=== PATIENT | male | born 1945 | race Caucasian/White ===

== ENCOUNTER 2017-01-18 15:04 | Inpatient (IN) | payer OTHER ==
[~2017-01-18] VITALS: Ht 188 cm; Wt 93.0 kg
[~2017-01-18 15:04] MED LIST: ATEN50TA2 PO
[2017-01-18 15:43] VITALS: BP 179/84
--- NOTE | 2017-01-18 15:47 | NUR ---
STILL IN OVERFLOW
[2017-01-18 18:17] LABS: BASOPHILS # (AUTO) 0.3 K/uL (0.00-0.22); EOSINOPHILS # (AUTO) 0.7 K/uL (0-0.4); EOSINOPHILS % (AUTO) 7.2 % (0.0-4.0); HEMATOCRIT 41.1 % (36-52); HEMOGLOBIN 13.7 g/dL (12.0-18.0); LYMPHOCYTES # (AUTO) 2.3 K/uL (2.0-11.5); LYMPHOCYTES % (AUTO) 24.2 % (20.5-51.1); MEAN CORPUSCULAR HEMOGLOBIN 30 pg (27-31); MEAN CORPUSCULAR HGB CONC 33 g/dL (33-37); MEAN CORPUSCULAR VOLUME 91 fL (80-94); MONOCYTES # (AUTO) 0.6 K/uL (0.8-1.0); MONOCYTES % (AUTO) 6.1 % (1.7-9.3); NEUTROPHILS # (AUTO) 5.7 K/uL (1.8-7.7); PLATELET COUNT (AUTO) 262 K/uL (140-450); RED BLOOD CELL COUNT(AUTO) 4.52 MIL/uL (4.20-6.10); WHITE BLOOD COUNT (AUTO) 9.6 K/uL (4.8-10.8)
[2017-01-18 18:27] LABS: ANION GAP 10.6 (8-16); CALCIUM 8.6 mg/dL (8.5-10.1); CHLORIDE 107 mmol/L (98-107); CREATININE 1.4 mg/dL (0.7-1.3); GLUCOSE 123 mg/dL (74-106); POTASSIUM 3.6 mmol/L (3.5-5.1); SODIUM SERUM 144 mmol/L (136-145); UREA NITROGEN, BLOOD 14 mg/dL (7-18)
--- NOTE | 2017-01-18 18:31 | NUR ---
Pt taken to bed 6.
[2017-01-18 18:32] LABS: ALANINE AMINOTRANSFERASE 14 U/L (16-63); ALBUMIN 3.1 g/dL (3.4-5.0); ALKALINE PHOSPHATASE 96 U/L (46-116); AMYLASE 44 U/L (25-115); ASPARTATE AMINOTRANSFERASE 14 U/L (15-37); LIPASE 68 U/L (73-393); TOTAL BILIRUBIN 0.2 mg/dL (0.0-1.0); TOTAL PROTEIN, SERUM 7.2 g/dL (6.4-8.2)
--- NOTE | 2017-01-18 18:39 | NUR ---
PT CAME TO ER DUE TO ABDOMINLA AND BACK PAIN;S/P ANGIOPLASTY X1 MONTH AGO PAIN GOT WORST.HX: HTN. NOT TAKING ANY MEDS;DENIES N/V/D; SKIN IS PINK/WARM/DRY; AAOX4 WITH EVEN AND STEADY GAIT; LUNGS CLEAR BL; HR EVEN AND REGULAR; PT DENIES ANY FEVER, CP, SOB, OR COUGH AT THIS TIME; PATIENT STATES PAIN OF 7/10 AT THIS TIME;PATIENT POSITIONED FOR COMFORT; HOB ELEVATED; BEDRAILS UP X2; BED DOWN.
--- NOTE | 2017-01-18 18:50 | NUR ---
PT IS AMBIVALENT OF CT SCAN W/ CONTRAST;EXPLAINED TO PT THE THE BENEFITS AND RISK OF PROCEDURES BUT PT IS UNSURE BECAUSE PER PT HIS PROBLEM NOW WITH HIS HEAKTH STARTED WHEN HE HAD AN ANGIOPLASTY LAST MONTH;NOTIFIED ER .
--- NOTE | 2017-01-18 19:07 | NUR ---
ASKED PT IF HE CAN URINE SAMPLE;PT STATES " I DOUBT IT" I"JUST WENT TO THE RESTROOM BEFORE COMING HERE";WILL FOLLOW UP W/ THE COLLECTION OF URINE.
--- NOTE | 2017-01-18 19:28 | NUR ---
Pt report given to JOSE RIVAS. Transfer of care at this time.
[2017-01-18] MEDS ORDERED: diphenhydrAMINE 50 MG/ML VIAL IVP ONE (20:15)
[2017-01-18] MEDS ORDERED: NACL 0.9% 1,000 ML IV ONE (20:15)
--- NOTE | 2017-01-18 20:20 | NUR ---
PT STATES PLEASE ALLOW HIM SOME TIME, HE WILL URINE SOON, ER MD DR WELCH AWARE
--- NOTE | 2017-01-18 22:07 | NUR ---
PT LEFT FOR CT ACCOMPANIED BY MEDICAL RECORDS ANALYST
[2017-01-18 22:11] LABS: APPEARANCE,URINE CLEAR (CLEAR); BILIRUBIN,URINE 1+ (NEGATIVE); BLOOD, URINE NEGATIVE (NEGATIVE); LEUKOCYTE ESTERASE ,URINE NEGATIVE (NEGATIVE); NITRITE, URINE NEGATIVE (NEGATIVE); PH,URINE 5.5 (5.0-9.0); PROTEIN,URINE TRACE (NEGATIVE); UGLUCOSE NEGATIVE (NEGATIVE)
[2017-01-18 22:17] LABS: COLOR,URINE AMBER (YELLOW)
[2017-01-18 22:27] LABS: BACTERIA,URINE None Seen /HPF (None Seen); ICTOTEST NEGATIVE (NEGATIVE); RBC,URINE NONE SEEN /HPF (0-5); SQUAMOUS EPITHELIAL CELL,UR None Seen /LPF (0-3 (FEW)); WBC,URINE NONE SEEN /HPF (0-5)
--- NOTE | 2017-01-18 22:54 | NUR ---
PT RETURN FROM CT
--- NOTE | 2017-01-19 00:05 | NUR ---
Patient appears to be resting comfortably in bed. Vital Signs within normal limits. Respirations even and unlabored.
[2017-01-19] MEDS ORDERED: NACL 0.9% 1,000 ML IV ONE (01:25)
[2017-01-19] MEDS ORDERED: PIPERACILLIN/TAZOBACTAM 3.375 GM in DEXTROSE 5% 50 ML IV ONE (01:25)
[2017-01-19] MEDS ORDERED: MORPHINE SULFATE 2 MG/ML SYR IVP PRN (01:40)
[2017-01-19] MEDS ORDERED: HYDROcodone/APAP 5/325 MG 1 TAB TAB PO PRN (01:40)
[2017-01-19] MEDS ORDERED: HYDROmorphone PFS 2 MG/ML SYR IVP PRN (01:40)
[2017-01-19] MEDS ORDERED: LORazepam 2 MG/ML VIAL IVP PRN (01:40)
[2017-01-19] MEDS ORDERED: ONDANSETRON 4 MG/2 ML VIAL IVP PRN (01:40)
[2017-01-19] MEDS ORDERED: ACETAMINOPHEN 325 MG TAB PO PRN (01:40)
[2017-01-19] MEDS ORDERED: hydrALAZINE 20 MG/ML VIAL IVP ONE (02:00)
[2017-01-19 02:05] LABS: LACTIC ACID 1.5 mmol/L (0.4-2.0)
--- NOTE | 2017-01-19 02:10 | NUR ---
Patient will be admitted to care of DR BOYD. Admited to MS 121B. Will go to room 121B. Belongings list completed. Report to [facility] .
--- NOTE | 2017-01-19 02:15 | NUR ---
PT ARRIVED TO UNIT IN WHEEL CHAIR. INITIAL ASSESSMENT COMPLETED. PT AAOX4. PT'S SKIN IS INTACT. PT HAS IV ON RIGHT AC G 18; ASYMPTOMATIC, PATENT AND INTACT. ORIENTED PT TO ROOM AND SURROUNDINGS AND USE OF CALL LIGHT. EXPLAINED PLAN OF CARE TO PT AND HE VERBALIZES UNDERSTANDING. WILL CONTINUE TO MONITOR PT.
[2017-01-19 02:20] VITALS: BP 163/94
[2017-01-19] MEDS ORDERED: PIPERACILLIN/TAZOBACTAM 3.375 GM in DEXTROSE 5% 50 ML IV SCH (03:00)
[2017-01-19] MEDS: NACL 0.9% 1,000 ML IV SCH ×2 (03:10→11:39)
[2017-01-19] MEDS ORDERED: PIPERACILLIN/TAZOBACTAM 3.375 GM VIAL IV ONE (03:10)
--- NOTE | 2017-01-19 03:21 | NUR ---
0300 ZOSYN GIVEN. THERE WAS AN ORDER TO GIVEN ZOSYN AT 0300 ON [facility]; HOWEVER, ON THE [facility]YXIS THE ORDER WAS FOR 0600. CALLED PHARMACIST ROSENDA AND HE STATED TO GO AHEAD AND GIVE IT AT 0300. WILL CONTINUE TO MONITOR PT. Addendum: 01/19/17 at 0327 by Jayla Carey RN VS STABLE, PT DENIES PAIN AT THIS TIME.
--- NOTE | 2017-01-19 04:30 | NUR ---
PT STATED THAT HE WAS HUNGRY. PROVIDED PT WITH A SANDWICH AND APPLE JUICE. PT STABLE, WILL CONTINUE TO MONITOR PT.
--- NOTE | 2017-01-19 06:28 | NUR ---
PT SLEEPING AT THIS TIME. NO SIGNS OF DISTRESS NOTED. WILL CONTINUE TO MONITOR PT.
--- NOTE | 2017-01-19 07:06 | NUR ---
PATIENT HAS BEEN SCREENED AND CATEGORIZED MODERATE NUTRITION RISK. PATIENT WILL BE SEEN WITHIN 3-5 DAYS OF ADMISSION. 01/21/17-01/23/17 ISREAL MARTINEZ MS, RDN
--- NOTE | 2017-01-19 07:15 | NUR ---
ENDORSED PLAN OF CARE TO DAY SHIFT NURSE. PT IN STABLE CONDITION.
--- NOTE | 2017-01-19 07:16 | NUR ---
PT AWAKE AND ALERT, NO SIGNS OF ACUTE DISTRESS. BOWEL SOUNDS ACTIVE IN ALL 4 QUADRANTS. BOWEL AND BLADDER CONTINENCE. SKIN INTACT. PT DENIES PAIN AT THIS TIME. AMBULATORY WITH BRP. BED IN LOW POSITION WITH BILATERAL HALF SIDE RAILS UP, CALL LIGHT WITHIN REACH. RE-ORIENTED PATIENT TO HOSPITAL AND TO UNIT, PT VERBALIZED UNDERSTANDING.
[2017-01-19 08:00] VITALS: BP 143/71
[2017-01-19] MEDS: ENOXAPARIN 40 MG/0.4 ML SYR SUBQ SCH (08:47)
--- NOTE | 2017-01-19 10:27 | NUR ---
Social Service Note: I received a phone call from supervisor case loading Dennise from [facility], she requested patient's history of present illness report to be fax to her, fax number , I faxed report.
[2017-01-19] MEDS: PIPER/TAZO 3.375GM/D5W PREMIX 50 ML IV SCH ×3 (12:21→23:54)
[2017-01-19] MEDS ORDERED: ATENOLOL 50 MG TAB PO SCH (13:30)
--- NOTE | 2017-01-19 13:37 | NUR ---
PT SEEN BY DR BOYD, NEW ORDERS RECEIVED, NOTED, WILL CARRY OUT.
[2017-01-19 15:02] LABS: BASOPHILS # (AUTO) 0.1 K/uL (0.00-0.22); BASOPHILS % (AUTO) 1.2 % (0.0-2.0); EOSINOPHILS # (AUTO) 0.6 K/uL (0-0.4); EOSINOPHILS % (AUTO) 7.3 % (0.0-4.0); HEMATOCRIT 37.8 % (36-52); HEMOGLOBIN 12.4 g/dL (12.0-18.0); LYMPHOCYTES % (AUTO) 23.6 % (20.5-51.1); MEAN CORPUSCULAR HEMOGLOBIN 30 pg (27-31); MEAN CORPUSCULAR HGB CONC 33 g/dL (33-37); MEAN CORPUSCULAR VOLUME 92 fL (80-94); MONOCYTES # (AUTO) 0.7 K/uL (0.8-1.0); NEUTROPHILS # (AUTO) 5.2 K/uL (1.8-7.7); NEUTROPHILS % (AUTO) 59.9 % (42.2-75.2); PLATELET COUNT (AUTO) 220 K/uL (140-450); RED BLOOD CELL COUNT(AUTO) 4.09 MIL/uL (4.20-6.10); RED CELL DISTRIBUTION WIDTH 14.6 % (11.6-13.7); WHITE BLOOD COUNT (AUTO) 8.6 K/uL (4.8-10.8)
[2017-01-19 16:00] VITALS: BP 169/89
[2017-01-19 16:18] LABS: AMPHETAMINE, URINE NEG. ng/ml (NEG <=1000); BARBITURATE, URINE NEG. ng/ml (NEG <=200); BENZODIAZEPINE, URINE NEG. ng/mL (NEG <=200); CANNABINOID, URINE NEG. ng/mL (NEG <=50); COCAINE, URINE NEG. ng/mL (NEG <=300); OPIATE, URINE NEG. ng/mL (NEG <=2000); PHENCYCLIDINE SCREEN,URINE NEG. ng/mL (NEG <=25)
--- NOTE | 2017-01-19 19:36 | NUR ---
PT AWAKE AND ALERT, NO SIGNS OF ACUTE DISTRESS. WILL ENDORSE TO RAMP SERVICE EMPLOYEE NURSE FOR CONTINUITY OF CARE.
--- NOTE | 2017-01-19 19:37 | NUR ---
RECEIVED FROM AM RN IN BED AWAKE AND ALERT. ABLE TO VERBALIZE SIMPLE NEEDS . DX. OF DIVERTICULITIS. . IVF SITE TO RAC INTACT AND NO INFILTRATION NOTED. RE-ORIENTED TO CALL LIGHT USE AND CARE PLANS FOR THE NIGHT DISCUSSED WITH HIM. NO COMPLAINT AT THIS TIME. NOTED PT. HAS TENDENCY TO TALK TO HIMSELF. NOT TOTALLY FOCUSED.
--- NOTE | 2017-01-19 22:37 | NUR ---
SLEEPING AT THIS TIME. NO RESTLESSNESS NOTED. MADE SURE CALL LIGHT WITH IN REACH. BED ALARM ON.
[2017-01-20 00:29] VITALS: BP 148/72
--- NOTE | 2017-01-20 02:00 | NUR ---
NEW STOOL SPECIMEN FOR CULTURE SENT TO LAB. FOR TEST. NO COMPLAINTS DONE.
--- NOTE | 2017-01-20 03:54 | NUR ---
SLEEPING. NO RESTLESSNESS. CALL LIGHT WITH IN REACH. NO INFILTRATION TO IVF SITE.
[2017-01-20] MEDS: PIPER/TAZO 3.375GM/D5W PREMIX 50 ML IV SCH (05:16)
--- NOTE | 2017-01-20 07:03 | NUR ---
SLEPT WELL THIS SHIFT. NO SOB. DENIES ANY PAIN ON THIS SHIFT. A/O X 4. CLEAR SPEECH. ABLE TO VERBALIZE SIMPLE NEEDS.
[2017-01-20 07:19] LABS: BASOPHILS # (AUTO) 0.2 K/uL (0.00-0.22); BASOPHILS % (AUTO) 1.9 % (0.0-2.0); EOSINOPHILS # (AUTO) 0.7 K/uL (0-0.4); EOSINOPHILS % (AUTO) 7.9 % (0.0-4.0); HEMATOCRIT 36.4 % (36-52); LYMPHOCYTES # (AUTO) 2.1 K/uL (2.0-11.5); LYMPHOCYTES % (AUTO) 23.7 % (20.5-51.1); MEAN CORPUSCULAR HEMOGLOBIN 30 pg (27-31); MEAN CORPUSCULAR HGB CONC 33 g/dL (33-37); MEAN CORPUSCULAR VOLUME 91 fL (80-94); MONOCYTES # (AUTO) 0.7 K/uL (0.8-1.0); MONOCYTES % (AUTO) 7.8 % (1.7-9.3); NEUTROPHILS # (AUTO) 5.2 K/uL (1.8-7.7); NEUTROPHILS % (AUTO) 58.7 % (42.2-75.2); PLATELET COUNT (AUTO) 223 K/uL (140-450); RED BLOOD CELL COUNT(AUTO) 3.99 MIL/uL (4.20-6.10); RED CELL DISTRIBUTION WIDTH 14.5 % (11.6-13.7); WHITE BLOOD COUNT (AUTO) 8.9 K/uL (4.8-10.8)
--- NOTE | 2017-01-20 07:30 | NUR ---
PT AWAKE AND ALERT, NO SIGNS OF ACUTE DISTRESS. BOWEL SOUNDS ACTIVE IN ALL 4 QUADRANTS. BOWEL AND BLADDER CONTINENCE. SKIN INTACT. AMBULATORY WITH BRP. IV PATENT AND ASYMPTOMATIC. COMPLAINT OF PAIN OF 5/10 IN ABDOMEN. RE-ORIENTED PATIENT TO UNIT AND TO HOSPITAL, PT VERBALIZED UNDERSTANDING. BED IN LOW POSITION WITH BILATERAL HALF SIDE RAILS UP, CALL LIGHT WITHIN REACH.
[2017-01-20 07:42] LABS: ALANINE AMINOTRANSFERASE 12 U/L (16-63); ALBUMIN 2.6 g/dL (3.4-5.0); ALKALINE PHOSPHATASE 73 U/L (46-116); ANION GAP 11.3 (8-16); ASPARTATE AMINOTRANSFERASE 12 U/L (15-37); CALCIUM 8.1 mg/dL (8.5-10.1); CARBON DIOXIDE 26.2 mmol/L (21-32); CHLORIDE 107 mmol/L (98-107); CREATININE 1.2 mg/dL (0.7-1.3); GLUCOSE 99 mg/dL (74-106); MAGNESIUM 1.9 mg/dL (1.8-2.4); POTASSIUM 3.5 mmol/L (3.5-5.1); SODIUM SERUM 141 mmol/L (136-145); TOTAL BILIRUBIN 0.4 mg/dL (0.0-1.0); TOTAL PROTEIN, SERUM 6.3 g/dL (6.4-8.2); UREA NITROGEN, BLOOD 12 mg/dL (7-18)
[2017-01-20 08:00] VITALS: BP 178/92
[2017-01-20] MEDS: ENOXAPARIN 40 MG/0.4 ML SYR SUBQ SCH (08:29)
[2017-01-20] MEDS ORDERED: ATENOLOL 50 MG TAB PO SCH (09:00)
--- NOTE | 2017-01-20 09:38 | NUR ---
RECEIVED CALL FROM PEDRO IN THE LAB, PATIENT POSITIVE FOR C DIFF. LEFT A MESSAGE FOR DR BOYD.
--- NOTE | 2017-01-20 10:55 | NUR ---
INFORMED DR BOYD OF POSITIVE C DIFF, RECEIVED NEW ORDERS TO D/C ZOSYN AND START FLAGYL 500MG TID IV, NOTED, WILL CARRY OUT.
[2017-01-20] MEDS: metroNIDAZOLE 500 MG/NS PREMIX 100 ML IV SCH ×2 (12:31→20:15)
--- NOTE | 2017-01-20 13:32 | NUR ---
Social Service Note: I called and spoke with Giselle from [facility] (referral service for placement for seniors) , fax , per Giselle, there are several rooms available at various room and boards where patient may go to upon discharge.
[2017-01-20] MEDS ORDERED: hydrALAZINE 25 MG TAB PO PRN (14:30)
[2017-01-20 16:00] VITALS: BP 158/96
--- NOTE | 2017-01-20 19:20 | NUR ---
PATIENT AWAKE AND ALERT, NO SIGNS OF ACUTE DISTRESS. ENDORSED TO AIRBRUSH ARTIST PHOTOGRAPHY NURSE FOR CONTINUITY OF CARE.
--- NOTE | 2017-01-20 19:20 | NUR ---
RECEIVED FROM AM RN IN BED AWAKE AND ALERT. ISOLATION PRECAUTION. STOOL WITH C-DIFF . ABLE TO VERBALIZE NEEDS WELL AND PT . A/O X 4. ROM X 4. CLEAR SPEECH. IVF SITE TO RAC#20 INTACT AND NOT INFILTRATED. CALL LIGHT WITH IN REACH AND CARE PLANS FOR THE NIGHT DISCUSSED WITH HIM.
--- NOTE | 2017-01-20 22:12 | NUR ---
STILL AWAKE AND WATCHING TV. ABLE TO AMBULATE TO RESTROOM BY HIMSELF. ABLE TO VERBALIZE NEEDS WELL. ENCOURAGE TO USE CALL LIGHT FOR ANY HELP HE MAY NEED. ON ISOLATION PRECAUTION RT STOOL WITH C-DIFF.
--- NOTE | 2017-01-21 | NUR ---
SLEEPING. CALL LIGHT WITH IN REACH.
[2017-01-21 00:41] VITALS: BP 142/72
[2017-01-21] MEDS: metroNIDAZOLE 500 MG/NS PREMIX 100 ML IV SCH ×3 (05:08→20:20)
--- NOTE | 2017-01-21 05:09 | NUR ---
SLEEPING WELL THIS SHIFT. NO COMPLAINTS DONE. DENIES PAIN THIS SHIFT. ABLE TO USE CALL LIGHT FOR HELP. A/O X 4.
[2017-01-21 05:56] LABS: BASOPHILS # (AUTO) 0.1 K/uL (0.00-0.22); BASOPHILS % (AUTO) 1.2 % (0.0-2.0); EOSINOPHILS # (AUTO) 0.7 K/uL (0-0.4); EOSINOPHILS % (AUTO) 7.5 % (0.0-4.0); HEMATOCRIT 37.5 % (36-52); HEMOGLOBIN 12.4 g/dL (12.0-18.0); LYMPHOCYTES # (AUTO) 2.3 K/uL (2.0-11.5); LYMPHOCYTES % (AUTO) 24.4 % (20.5-51.1); MEAN CORPUSCULAR HEMOGLOBIN 31 pg (27-31); MEAN CORPUSCULAR HGB CONC 33 g/dL (33-37); MEAN CORPUSCULAR VOLUME 93 fL (80-94); MONOCYTES # (AUTO) 0.8 K/uL (0.8-1.0); MONOCYTES % (AUTO) 8.1 % (1.7-9.3); NEUTROPHILS # (AUTO) 5.4 K/uL (1.8-7.7); NEUTROPHILS % (AUTO) 58.8 % (42.2-75.2); PLATELET COUNT (AUTO) 229 K/uL (140-450); RED BLOOD CELL COUNT(AUTO) 4.05 MIL/uL (4.20-6.10); RED CELL DISTRIBUTION WIDTH 14.4 % (11.6-13.7); WHITE BLOOD COUNT (AUTO) 9.3 K/uL (4.8-10.8)
[2017-01-21 06:18] LABS: ALANINE AMINOTRANSFERASE 14 U/L (16-63); ALBUMIN 2.8 g/dL (3.4-5.0); ALKALINE PHOSPHATASE 74 U/L (46-116); ANION GAP 9.6 (8-16); ASPARTATE AMINOTRANSFERASE 11 U/L (15-37); CALCIUM 8.4 mg/dL (8.5-10.1); CARBON DIOXIDE 30.1 mmol/L (21-32); CHLORIDE 106 mmol/L (98-107); CREATININE 1.2 mg/dL (0.7-1.3); GLUCOSE 95 mg/dL (74-106); POTASSIUM 3.7 mmol/L (3.5-5.1); SODIUM SERUM 142 mmol/L (136-145); TOTAL BILIRUBIN 0.3 mg/dL (0.0-1.0); TOTAL PROTEIN, SERUM 6.8 g/dL (6.4-8.2); UREA NITROGEN, BLOOD 12 mg/dL (7-18)
--- NOTE | 2017-01-21 07:14 | NUR ---
ENDORSED TO THE NEXT RN FOR CONTINUITY OF CARE. AWAKE AND ALERT. INDEPENDENT. NO COMPLAINTS DONE THIS SHIFT. STILL WITH DIARRHEA. ISOLATION PRECAUTION OBSERVED RT C-DIFF IN STOOL.
--- NOTE | 2017-01-21 07:15 | NUR ---
RECEIVED REPORT FROM THE CANDLE POURER NURSE FOR CONTINUITY OF CARE. PT IS AWAKE AND ALERT AND ORIENTED. CONVERSING APPROPRIATELY. INTRODUCED MYSELF AND UPDATED THE BOARD. PER CANDLE POURER NURSE, PT HAS UNCOOPERATIVE AND REFUSED MEDS. ENCOURAGED IMPORTANCE OF TAKING MEDS. IV R AC 18G NS TKO. PER CANDLE POURER NURSE PT IS AMBULATORY. PT REQUESTS A SHOWER TODAY. V/S WITHIN NORMAL RANGE. DENIES PAIN. SKIN IS INTACT. WILL BE BACK WITH MORNING MEDS.
[2017-01-21 08:00] VITALS: BP 142/98
[2017-01-21] MEDS: ENOXAPARIN 40 MG/0.4 ML SYR SUBQ SCH (08:46)
--- NOTE | 2017-01-21 08:50 | NUR ---
PT FINISHED BREAKFAST. ADEQUATE. ADMINISTERED MORNING MEDS. PT COOPERATIVE AND TOLERATED WELL. WILL CONTINUE TO MONITOR PT.
[2017-01-21] MEDS ORDERED: ATENOLOL 50 MG TAB PO SCH (09:00)
--- NOTE | 2017-01-21 10:47 | NUR ---
CHECKED ON PT. ASKED IF HE IS FEELING OK, IF NEEDED ANYTHING. PT STATES NOT REALLY. NOTHING I CAN DO. WILL CONTINUE TO MONITOR PT.
--- NOTE | 2017-01-21 11:00 | NUR ---
CM NOTE INITIAL REVIEW FAXED TO [facility] [phone] [facility] [phone]
--- NOTE | 2017-01-21 12:00 | NUR ---
MOVED PT FROM 121B TO 118, ISO ROOM. PT WANTED TO TAKE SHOWER. PT ON CONTACT SO UNABLE TO USE PUBLIC SHOWER. NOW THAT HE IS MOVED, HE HAS HIS OWN BATHROOM TO SHOWER IN.
--- NOTE | 2017-01-21 12:17 | NUR ---
SS NOTE: MESSAGE LEFT FOR [facility] TO FOLLOW UP ON PLACEMENT FOR PT
--- NOTE | 2017-01-21 13:16 | NUR ---
DR. BOYD IS HERE. SHE HAS D/C'D PATIENT. SPOKE TO GISSELLE ALLEN EARLIER. PER , PT IS ON TX AND HE IS NOT HAVING A LOT OF LOOSE BM. HE IS MORE CONSTIPATED. HE HAS RX OF FLAGYL. ONCE OK PER SS, I WILL START ON DISCHARGE.
--- NOTE | 2017-01-21 14:35 | NUR ---
SS NOTE: I SPOKE WITH PT BEDSIDE TO DISCUSS HIS DISCHARGE PLAN. PT STATED THAT HE STILL HAS ALL OF HIS INCOME AND WOULD BE WILLING TO GO TO A ROOM AND BOARD BUT HE IS CONCERNED ABOUT BEING CONTAGIOUS TO OTHER PEOPLE. HE ALSO STATED THAT HE IS FEELING WEAK AND IS STILL HAVING TO GO TO THE RESTROOM MANY TIMES. I PROVIDED PT WITH THE MEDICARE IMPORTANT MESSAGE AND PT REPORTED THAT HE WOULD LIKE TO APPEAL HIS DISCHARGE. PT SIGNED THE MEDICARE IMPORTANT MESSAGE FORM AND WAS PROVIDED WITH A COPY.
--- NOTE | 2017-01-21 15:05 | NUR ---
SS HERE WITH PT. PT WOULD LIKE TO APPEAL DISCHARGE. DOESN'T FEEL WELL ENOUGH TO GO HOME. PT CALLED THE APPEALS LINE. SS WORKING ON APPEAL PROCESS.
--- NOTE | 2017-01-21 15:55 | NUR ---
1516 RECEIVED CALL FROM SHAYLEE AT [facility] TO VERIFY CM FAX NUMBER PT HAS CALLED THE O REQUESTING AN APPEAL OF THE DISCHARGE. REQUEST FOR RECORDS RECEIVED FROM [facility] AND REQUESTED MEDICAL RECORDS INCLUDING THE DANIAL AND DNOD WAS FAXED TO [phone] AND CASE CONTROL ID IS [id number]. 1600 PT PROVIDE WITH A COPY OF THE DETAILED NOTICE OF DISCHARGE.
[2017-01-21 16:00] VITALS: BP 193/91
--- NOTE | 2017-01-21 17:10 | NUR ---
PT HAD AN ACCIDENT ON THE FLOOR. PAGED EVS/HOUSEKEEPING TO COME AND CLEAN.
[2017-01-21] MEDS ORDERED: METR250T2 PO (17:25)
--- NOTE | 2017-01-21 19:25 | NUR ---
ENDORSED PT TO THE CUT OFF WORKER NURSE AT BEDSIDE FOR CONTINUITY OF CARE. PT IS IN STABLE CONDITION. Addendum: 01/21/17 at 1934 by Mavis Farfan RN PT ALL READY TO GO TO [facility]. SPOKE TO JOSE LANDAVERDE. DISCHARGE PAPER WORK ALL DONE. ENDORSED D/C TO CUT OFF WORKER NURSE. PT AWARE. E COMING AT 8:45PM.
--- NOTE | 2017-01-21 19:35 | NUR ---
RECEIVED FROM AM RN IN BED SITTING UP AWAKE AND ALERT. NO SOB. DENIES PAIN AT THIS TIME. DX. OF DIVERTICULITIS . IVF SITE TO RLAC #18 INTACT AND NO INFILTRATION NOTED. CALL LIGHT WITH IN REACH AND PT. IS FOR DISCHARGE. WAITING FOR [facility] . A/O X 4. ROM X 4.
--- NOTE | 2017-01-21 22:26 | NUR ---
PT. DISCHARGED AND PICKED UP BY [facility] AWAKE AND ALERT. NO BELONGINGS LEFT BEHIND. SOME PAPER WORKS NOT SIGNED SOME SIGNED. REFUSED TO SIGN FURTHER . PT. WITH DISORIENTATION AT TIMES. CHARGE NURSE MADE AWARE OF IT. REPORT TO FACILITY WHERE HE IS GOING AWARE OF TRANSFER AND REPORT WAS GIVEN BY AM RN. IVF DISCONTINUED WITH TIP INTACT. TOLERATED WELL. COVERED WITH BAND AID. NO SOB. PAPER WORKS GIVEN TO [facility] AND DISCHARGE PAPER WORKS DISCUSSED WITH PATIENT EARLIER ON THE START OF SHIFT.
--- NOTE | 2017-01-23 09:01 | NUR ---
LATE ENTRY FOR 01/21/17 1600 MET WITH PT AND INFORMED HIM THAT REQUEST FOR RECORDS HAD BEEN RECEIVED FROM [facility] AND WERE SENT. PT STATED "I'M STILL HAVING DIARRHEA AND I DON'T WANT TO BE OUT IN THE COMMUNITY LIKE THIS". 1615 DR BOYD ON UNIT. DCM AND DR BOYD MET WITH PT AND DR BOYD ASKED PT IF HE WOULD BE AGREEABLE TO GO TO SNF. PT STATED THAT HE WOULD AND THAT HE HAS BEEN TO [facility] BEFORE AND WOULD BE AGREEABLE TO GO THERE IF BED AVAILABLE. DR BOYD SPOKE WITH PAUL WHIPPLE FROM [facility] AND INFORMED HER PT AGREEABLE TO GO TO [facility] AND PAUL WILL MAKE ARRANGEMENTS FOR TRANSFER. 01/23/17 VM MESSAGE RECEIVED ON 01/22 FROM LIU AT [facility] STATING THAT DETERMINATION FOR DISCHARGE HAS BEEN UPHELD AND PT WILL BECOME FINANCIALLY RESPONSIBLE ON 01/23/17.
== END 2017-01-21 22:20 | DRG 372 ==
LOC: MED 15:04 → MTU 01-19 01:39
PROVIDERS: ADMIT Hospitalist; ATTEND Hospitalist
DX: A04.7 Enterocolitis due to Clostridium difficile (principal); K57.92 Diverticulitis of intestine, part unspecified, without perforation or abscess without bleeding; R62.7 Adult failure to thrive; F17.210 Nicotine dependence, cigarettes, uncomplicated; I10 Essential (primary) hypertension; Z98.62 Peripheral vascular angioplasty status
CPT/HCPCS: 36415; 80053; 80305; 81001; 82150; 83605; 83690; 83735; 84484; 85025; 87040; 87045; 87070; 87081; 93005; 96361; 96374; 96375; 99285; J0360; J1200; J1650; J2543; J3490; J7030; J7060; Q9967